=== PATIENT | male | born 1985 | race Two or more races ===

== ENCOUNTER 2024-05-26 12:26 | Emergency (ER) | payer MEDICAID, SELFPAY ==
[2024-05-26 12:48] VITALS: BP 213/136; BP 215/135; PULSE 84; RESP 18; TEMP 36.7; O2SAT 99; BMI 27.6
--- NOTE | 2024-05-26 12:59 | XR_ITS ---
Examination: CT cervical spine without contrast 2-D sagittal reconstructions 2-D coronal reconstructions 3-D reconstructions. Exam date and time:May 26, 2024 1312 hours INDICATIONS: Patient fell 12 feet today with into the neck, neck pain CTDI:vol (mGy) 8.50 DLP: (mGycm) 206 Technique: Multiple 2 mm axial sections of the cervical spine have been obtained. The coronal and sagittal reconstructions have been obtained. 3-D reconstructions have been obtained. Low dose protocols were performed. One or more of the following dose reduction techniques were used; automated exposure control, adjustment of the mA and/or KV according to patient size, use of iterative reconstruction technique. Findings: Axial sections demonstrate intact base of the skull. C1 exhibit satisfactory relationship to the odontoid. No acute cervical vertebral body fracture seen. Alignment posterior spinous processes satisfactory. Impression: No acute cervical fracture.
--- NOTE | 2024-05-26 12:59 | XR_ITS ---
Examination: CT lumbar spine, without contrast. 2-D sagittal reconstructions. 2-D coronal reconstructions. 3-D reconstructions. Date and time of exam:May 26, 2024 1316 hours INDICATIONS: Patient fell 12 feet with injury of the lower back, lower back pain CTDI: vol (mGy):17.7 DLP: (mGycm):531 Technique: Multiple 1.25 mm axial sections of the lumbar spine without intravenous contrast have been obtained. 2-D sagittal and coronal reconstructions have been obtained. 3-D reconstructions have been obtained. Low dose protocols were performed. One or more of the following dose reduction techniques were used; automated exposure control, adjustment of the mA and/or KV according to patient size, use of iterative reconstruction technique. Findings: Acute fracture T12 vertebral body, depression superior endplate, reduction in height 15% No acute lumbar fracture Lumbar pedicles lamina transverse and posterior spinous processes intact No focal lumbar disc protrusions IMPRESSION: Mild acute compression fracture T12 vertebral body
--- NOTE | 2024-05-26 12:59 | XR_ITS ---
Examination: CT thoracic spine, without contrast. 2-D sagittal reconstructions. 2-D coronal reconstructions. 3-D reconstructions. Date and time of exam:May 26, 2024 1316 hours INDICATIONS: Patient fell 12 feet today with injury to the upper back, upper back pain CTDI: vol (mGy):18.5 DLP: (mGycm):673 Technique: Multiple 1.25 mm axial sections of the thoracic spine without intravenous contrast have been obtained. 2-D sagittal and coronal reconstructions have been obtained. 3-D reconstructions have been obtained. Low dose protocols were performed. One or more of the following dose reduction techniques were used; automated exposure control, adjustment of the mA and/or KV according to patient size, use of iterative reconstruction technique. Findings: Acute compression fracture T12 vertebral body, depression superior endplate, reduction in height 15% The pedicles laminated transverse processes at this level are intact Remaining thoracic vertebral bodies intact IMPRESSION: Acute compression fracture T12 vertebral body
--- NOTE | 2024-05-26 13:00 | PD.EDRME ---
Rapid Medical Screening Exam RME Arrival date/time: 05/26/24 12:26 Chief Complaint: Back Pain/Injury Time Seen by Provider: 05/26/24 12:45 Vital signs: Vital Signs Temperature 98.0 F 05/26/24 12:48 Pulse Rate 84 05/26/24 12:48 Respiratory Rate 18 05/26/24 12:48 Blood Pressure 213/136 H 05/26/24 12:48 Pulse Oximetry (%) 99 05/26/24 12:48 Oxygen Delivery Method Room Air 05/26/24 12:48 RME Narrative: 39-year-old male patient was brought in for evaluation regarding fall. Patient fell off the roof about 12 feet high now complaining of neck pain, low back pain, severity moderate. Patient is ambulatory no LOC.
--- NOTE | 2024-05-26 13:09 | XR_ITS ---
Examination: CT brain head without contrast. 2-D sagittal coronal reconstructions Date and time of exam:May 26, 2024 1316 hours INDICATIONS: Patient fell 12 feet today with injury to the head, head pain CTDI: vol (mGy):47.8 DLP: (mGycm):989 Technique: Multiple CT axial sections of the brain have been obtained, 5 mm slice thickness. Contrast has not been administered. 2-D sagittal, coronal reconstructions have been obtained Low dose protocols were performed. One or more of the following dose reduction techniques were used; automated exposure control, adjustment of the mA and/or KV according to patient size, use of iterative reconstruction technique. Findings: No significant ventricular enlargement. Intra-axial or extra-axial hemorrhage density is not seen. No mass effect or midline shift Basal cisterns are not remarkable. Fourth ventricle is midline. Cranial vault intact. Impression: Negative for acute hemorrhage, mass effect or midline shift Advise clinical correlation and follow-up as clinically warranted
--- NOTE | 2024-05-26 13:21 | EDNOTE_ITS ---
ED Back Injury Pain RME/HPI General Chief Complaint: Back Pain/Injury Stated Complaint: fell from roof 0900 am / 12 feet/ back pain Time Seen by Provider: 05/26/24 12:45 Arrival date/time: 05/26/24 12:26 RME / HPI RME / HPI Narrative: 39-year-old male patient was brought in for evaluation regarding fall. Patient fell off the roof about 12 feet high now complaining of neck pain, mid back pain, severity moderate. Incident happened earlier today. Patient is ambulatory no LOC. Denies any bladder or bowel incontinence. Related Data Previous Rx's ?Medication ?Instructions ?Recorded ibuprofen 800 mg tablet 800 mg PO TID PRN pain #30 tabs 05/26/24 lisinopril 10 mg tablet 10 mg PO QDAY #30 tabs 05/26/24 Allergies Allergy/AdvReac Type Severity Reaction Status Date / Time No Known Allergies Allergy Verified 05/26/24 12:30 Review of Systems Review of Systems Narrative Review of Systems: Review of system reviewed and within normal limits except mentioned in HPI ED Exam Narrative Physical exam: VITAL SIGNS: Reviewed. GENERAL APPEARANCE: Alert and interactive, follows commands, no acute distress, HEAD AND FACE: Non-traumatic. ENT: PERRL, pink conjunctivitis, eyelid no trauma, Mucous membrane moist. NECK: Supple, posterior neck tenderness, no nuchal rigidity. CHEST: No tenderness, no crepitus, no paradoxical movement, no retractions. LUNGS: Clear, well ventilated, symmetric, no rales, no wheezing, no ronchi, no stridor, good breath sounds bilaterally. HEART: Regular rate, regular rhythm, no murmur, no gallops. ABDOMEN: Soft, positive bowel sounds, nondistended, no guarding, nontender, no rebound, no masses, RECTAL: Deferred. GENITAL: Deferred. NEUROLOGICAL: Gross motor function intact sensory function intact, Appropriate for age. MUSCULOSKELETAL: low back tenderness, full range of motion. EXTREMITIES: Nontender, full range of motion. SKIN: Color pink, dry, no rash, no lacerations, no abrasions, no contusions. LYMPHATICS: Deferred. Course Quality Measures none Orders Category Date Time Status CT cervical spine wo con Stat Exams 05/26/24 12:[address] head/brain wo con Stat Exams 05/26/24 13:[address] lumbar spine wo con Stat Exams 05/26/24 12:[address] thoracic spine wo con Stat Exams 05/26/24 12:59 Completed Morphine Inj Med 05/26/24 13:23 Discontinued 5 mg IM X1 ONE NIFEdipine [Procardia] Med 05/26/24 15:04 Discontinued 20 mg PO X1 ONE Ondansetron Odt [Zofran Odt] Med 05/26/24 13:23 Discontinued 4 mg PO X1 ONE Vital Signs Vital signs: Vital Signs Temperature 98.0 F 05/26/24 12:48 Pulse Rate 84 05/26/24 12:48 Respiratory Rate 18 05/26/24 12:48 Blood Pressure 213/136 H 05/26/24 12:48 Pulse Oximetry (%) 99 05/26/24 12:48 Oxygen Delivery Method Room Air 05/26/24 12:48 Back Pain / Injury MDM Narrative MDM Narrative:: 39-year-old male patient was brought in for evaluation regarding fall. Patient fell off the roof about 12 feet high now complaining of neck pain, mid back pain, severity moderate. Incident happened earlier today. Patient is ambulatory no LOC. Denies any bladder or bowel incontinence. CT scan of the head came back unremarkable CT scan of the neck came back unremarkable CT scan of the lumbar spine came back unremarkable CT scan of the thoracic spine showed compression fracture of T12 with loss of height less than 10%, no other injury noted pedicles are intact, this is a stable fracture. Patient stable for discharge was advised to avoid bending, carrying loads, lifting, and for follow-up with PCP and for referral to spine surgeon. Patient was also advised to return to emergency room for worsening back pain, saddle anesthesia, urinary incontinence, bowel incontinence, patient agrees with the plan. Patient blood pressure was noted to be having elevated blood pressure. Patient is not taking any blood pressure medication.. Patient was also given Procardia in the emergency room. I told him to closely follow-up with PCP to monitor his blood pressure. Patient will be sent home on lisinopril. Patient data External records reviewed:: None Clinical information provided by:: none Social determinants that could affect healthcare access:: none Patient has the following chronic illnesses:: None How is presenting disease/condition affected by chronic disease/condition?: no chronic disease Evaluation data The following diagnostics were reviewed and interpreted by me:: radiology exam(s) and other (specify) Lab and/or radiology exams considered but not ordered:: None Interpretation Summary: CT scan of the head came back unremarkable CT scan of the neck came back unremarkable CT scan of the lumbar spine came back unremarkable CT scan of the thoracic spine showed compression fracture of T12 with loss of height less than 10%, no other injury noted pedicles are intact, this is a stable fracture. Medications / Prescriptions Medications or Prescriptions considered but not ordered:: None Medication administrations:: Medication Administration History Discontinued Medications Morphine Sulfate (Morphine Sulf Inj 10 Mg/Ml Vial) 5 mg IM X1 ONE Stop: 05/26/24 13:24 Last Admin: 05/26/24 14:12 Dose: 5 mg Documented By: SHYANN Nifedipine (Nifedipine 10 Mg Capsule) 20 mg PO X1 ONE Stop: 05/26/24 15:05 Ondansetron HCl (Ondansetron Odt 4 Mg Tabrap) 4 mg PO X1 ONE; Protocol Stop: 05/26/24 13:24 Last Admin: 05/26/24 14:12 Dose: 4 mg Documented By: SHYANN Morphine Zofran and Procardia Consultations Consultation(s) initiated? (list below): No Diagnosis Differential diagnosis back pain/injury: strain of lumbar region, thoracic back pain and other (Compression fracture T12, status post fall) Most likely diagnosis given after review of the tests above:: Compression fracture T12, status post fall Admission Indicated Admission indicated?: not indicated Explain why admission is indicated or not indicated:: Stable Admission Request Was there a request for admission?: No Disposition Plan Disposition Plan: Discharge Discharge Attestation Discharge Attestation: The patient was given an opportunity to ask questions and understood the d ischarge instructions. Discharge instructions specifically effects, indications for sooner follow up or return to the emergency department, and the expected course of current diagnosis. Patient condition: Stable Discharge Plan Plan Patient Disposition: HOME (Self Care) Disposition Comment: stable Prescriptions/Referrals Prescriptions/Med Rec: New ibuprofen 800 mg tablet 800 mg PO TID PRN (Reason: pain) Qty: 30 0RF lisinopril 10 mg tablet 10 mg PO QDAY Qty: 30 0RF Problem List Clinical Impression: Compression fracture of T12 vertebra, Fall, HTN (hypertension) Patient/Caregiver Discharge Instructions Discharge Activity: activity as tolerated Education Materials: Low-Salt Choices, ED Fracture, Vertebral Compression Additional Instructions: Thank you for the opportunity for serving you today. You are stable for discharged . You are advised to: Follow-up with your PCP in 1 to 2 days and asked for referral to spine surgeon, as your PCP also to monitor your blood pressure problem. 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
[2024-05-26 14:08] VITALS: BP 180/115; PULSE 75; RESP 18; O2SAT 99
[2024-05-26] MEDS: MORPHINE SULF INJ 10 MG/ML VIAL 5 MG IM (14:12)
[2024-05-26] MEDS: ONDANSETRON ODT 4 MG TABRAP PO (14:12)
[2024-05-26 15:06] VITALS: BP 175/128; BP 201/120; PULSE 77; RESP 16; TEMP 36.8; O2SAT 100
[2024-05-26 15:16] VITALS: BP 201/120; PULSE 87
[2024-05-26] MEDS: NIFEdipine 10 MG CAPSULE 20 MG PO (15:16)
[2024-05-26 16:12] VITALS: BP 139/85; PULSE 104; RESP 17; TEMP 37; O2SAT 98
== END 2024-05-26 16:30 | disposition home or self-care (01) ==
LOC: SERX 15:42
PROVIDERS: Emergency Provider Emergency Medicine
DX: S22.089A Unspecified fracture of T11-T12 vertebra, initial encounter for closed fracture (principal); S09.90XA Unspecified injury of head, initial encounter; S39.92XA Unspecified injury of lower back, initial encounter; M54.2 Cervicalgia; I10 Essential (primary) hypertension; W13.2XXA Fall from, out of or through roof, initial encounter
CPT/HCPCS: 70450; 72125; 72128; 72131; 96372; 99284; J2270; Q0162; A9270